=== PATIENT | male | born 1975 | race Caucasian/White ===

== ENCOUNTER 2022-07-08 07:29 | Day surgery (SDC) | payer MEDICAID ==
[2022-07-08] MEDS ORDERED: fentaNYL 50 MCG/ML SDV ONE (07:52)
[2022-07-08] MEDS ORDERED: Propofol 200 MG/20 ML SDV ONE (07:52)
[2022-07-08] MEDS ORDERED: Midazolam 1 MG/ML 2 ML SDV ONE (07:52)
[2022-07-08] MEDS ORDERED: Lactated Ringers 1,000 ML IV SCH (08:00)
== END 2022-07-08 11:36 | disposition home or self-care (01) ==
LOC: JP.SDS 07:29
PROVIDERS: ATTEND Family Medicine
DX: Z12.11 Encounter for screening for malignant neoplasm of colon (principal); K62.1 Rectal polyp; F17.200 Nicotine dependence, unspecified, uncomplicated
CPT/HCPCS: 88305; J2250; J2704; J3010; J7120